=== PATIENT | female | born 1970 | race Caucasian/White ===

== ENCOUNTER 2022-11-26 13:14 | Emergency (ER) | payer BC, SELFPAY ==
[2022-11-26 14:14] VITALS: BP 148/82; PULSE 73; RESP 18; TEMP 35.9; O2SAT 98; BMI 30.1
--- NOTE | 2022-11-26 16:10 | ED.GENADULT ---
HPI - General Adult General Time Seen by Provider: 16:11 Date Seen: 11/26/22 Chief complaint: Headache/Migraine Stated complaint: Post covid congestion Time Seen by Provider: 11/26/22 16:07 Source: patient, family, RN notes reviewed and old records reviewed Mode of arrival: ambulatory Limitations: no limitations History of Present Illness HPI narrative: 52-year-old female who presents with COVID symptoms. She has been feeling poorly since November 17 with nasal congestion, cough, headache. Loss of taste and smell as well. Related Data Allergies Allergy/AdvReac Type Severity Reaction Status Date / Time erythromycin base Allergy Verified 11/26/22 14:14 Penicillins Allergy Verified 11/26/22 14:14 Sulfa (Sulfonamide Allergy Verified 11/26/22 14:14 Antibiotics) Review of Systems Status of ROS: Reports: 10 or more systems reviewed and unremarkable except as noted in History and below Exam Narrative: Exam Narrative: General: Well-developed and well-nourished, no acute distress Head: Atraumatic and normocephalic Eyes: Pupils are equal reactive, extraocular motions intact, conjunctiva clear ENT: External nose and ears are normal, posterior pharynx without erythema or exudate Neck: No midline cervical tenderness, full spontaneous range of motion the neck, trachea midline, no adenopathy Heart: Regular rate and rhythm no murmurs or thrills Lungs: Clear to auscultation bilaterally without wheezes or crackles Abdomen: Soft, nontender, nondistended with active bowel sounds Musculoskeletal: No tenderness, deformity, or edema Neurologic: Awake, alert, and oriented x3, no gross focal neurologic deficits, cranial nerves intact as tested Psych: Mood and affect are appropriate Skin: No rashes Const: Vital Signs, click to edit/add: Vital Signs - 24 hr 11/26/22 14:14 Temperature 96.7 F L Pulse Rate [Pulse Oximeter] 73 Respiratory Rate 18 Blood Pressure [Ri ght Forearm] 148/82 H Pulse Oximetry 98 Oxygen Delivery Me thod Room Air Course Vital Signs Vital signs: Initial Vital Signs Temperature 96.7 F L 11/26/22 14:14 Temperature Source Temporal Artery Scan 11/26/22 14:14 Pulse Rate 73 11/26/22 14:14 Pulse Rhythm Regular 11/26/22 14:14 Respiratory Rate 18 11/26/22 14:14 Blood Pressure 148/82 H 11/26/22 14:14 Blood Pressure Mean 104 11/26/22 14:14 Blood Pressure Position Sitting 11/26/22 14:14 Pulse Oximetry 98 11/26/22 14:14 Oxygen Delivery Method Room Air 11/26/22 14:14 Vital Signs Temperature 96.7 F L 11/26/22 14:14 Pulse Rate 73 11/26/22 14:14 Respiratory Rate 18 11/26/22 14:14 Blood Pressure 148/82 H 11/26/22 14:14 Pulse Oximetry 98 11/26/22 14:14 Oxygen Delivery Method Room Air 11/26/22 14:14 Temperature 96.7 F L 11/26/22 14:14 Pulse Rate 73 11/26/22 14:14 Respiratory Rate 18 11/26/22 14:14 Blood Pressure 148/82 H 11/26/22 14:14 Pulse Oximetry 98 11/26/22 14:14 Oxygen Delivery Method Room Air 11/26/22 14:14 Medical Decision Making Medical Records Medical records reviewed: Yes I reviewed the patient's medical records Lab Data Lab results reviewed: Yes I reviewed the patient's lab results Discharge Plan Discharge Follow Up/Referrals: Ginacarlo Cuello MD [Primary Care Provider] -
--- NOTE | 2022-11-26 16:10 | ED.HA ---
HPI - Headache General Time Seen by Provider: 16:10 Date Seen: 11/26/22 Chief Complaint: Headache/Migraine Stated Complaint: Post covid congestion Time Seen by Provider: 11/26/22 16:07 Source: patient and RN notes reviewed Mode of arrival: ambulatory Limitations: no limitations History of Present Illness HPI Narrative: Jenae a very pleasant 52-year-old female with history recent COVID who comes to the emergency room with concerns regarding continuing headache. Patient was noted to develop COVID symptoms on November 17 after exposure to her who had COVID. She tested positive on November 19. She notes that she had headaches body aches and a sore throat. She states that all of that has resolved and she actually felt fairly well on November 23. In the last 2 days however she has pain behind her eyes and across her lower forehead. She also notes that she has a feeling of fullness in her head and in her ears. She denies fever, visual changes, continued cough or shortness of breath. She does not have any history of clotting disorders but does have a history of migraines. She does not feel like this is a migraine. Patient had called the nurse line today and nurse line suggested she come in to be seen. No neck pain at this time. Related Data Allergies Allergy/AdvReac Type Severity Reaction Status Date / Time erythromycin base Allergy Verified 11/26/22 14:14 Penicillins Allergy Verified 11/26/22 14:14 Sulfa (Sulfonamide Allergy Verified 11/26/22 14:14 Antibiotics) Review of Systems Status of ROS: Reports: 6 or more systems reviewed and unremarkable except as noted in History and below Const: Denies: fever, chills or fatigue Eyes: Denies: change in vision, blurry vision or light sensitivity ENMT: Denies: throat pain, neck pain or difficulty swallowing Cardio: Denies: chest pain or shortness of breath with exertion Resp: Denies: shortness of breath or cough GI: Denies: abdominal pain, nausea, vomiting, diarrhea or difficulty swallowing Musculo: Denies: neck pain Neuro: Reports: headache; Denies: numbness in extremities or weakness in extremities Endo: Denies: fatigue Exam Narrative: Exam Narrative: Patient is very pleasant nontoxic in appearance. Head is atraumatic normocephalic. Neck is supple with full range of motion. EOM is full with pupils equal round reactive. Left TM within normal limits. Right TM is retracted with some fluid but it is not erythematous or bulging. Oral cavity with moist mucous membranes. No significant erythema in the posterior oropharynx. Neck is supple without lymphadenopathy. Face is symmetrical without any obvious swelling edema. No significant discomfort with tapping over the frontal ethmoid or maxillary sinuses. Heart with regular rate and rhythm and lungs are clear to auscultation. Moving all extremities. Const: Vital Signs, click to edit/add: Vital Signs - 24 hr 11/26/22 14:14 11/26/22 16:38 Temperature 96.7 F L Pulse Rate [Pulse Oximeter] 73 63 Respiratory Rate 18 16 Blood Pressure [Ri ght Forearm] 148/82 H 137/87 Pulse Oximetry 98 Oxygen Delivery Me thod Room Air Documenting provider has reviewed patient's vital signs: yes Eye: Direct Ophthalmoscopy: no photophobia Course Vital Signs Vital signs: Initial Vital Signs Temperature 96.7 F L 11/26/22 14:14 Temperature Source Temporal Artery Scan 11/26/22 14:14 Pulse Rate 73 11/26/22 14:14 Pulse Rhythm Regular 11/26/22 14:14 Respiratory Rate 18 11/26/22 14:14 Blood Pressure 148/82 H 11/26/22 14:14 Blood Pressure Mean 104 11/26/22 14:14 Blood Pressure Position Sitting 11/26/22 14:14 Pulse Oximetry 98 11/26/22 14:14 Oxygen Delivery Method Room Air 11/26/22 14:14 Vital Signs Temperature 96.7 F L 11/26/22 14:14 Pulse Rate 73 11/26/22 14:14 Respiratory Rate 18 11/26/22 14:14 Blood Pressure 148/82 H 11/26/22 14:14 Pulse Oximetry 98 11/26/22 14:14 Oxygen Delivery Method Room Air 11/26/22 14:14 Temperature 96.7 F L 11/26/22 14:14 Pulse Rate 63 11/26/22 16:38 Respiratory Rate 16 11/26/22 16:38 Blood Pressure 137/87 11/26/22 16:38 Pulse Oximetry 98 11/26/22 14:14 Oxygen Delivery Method Room Air 11/26/22 14:14 MDM - Headache MDM Narrative Medical decision making narrative: 1. COVID-today is day 8 of COVID and I would not expect patient to be feeling this well. I do not see any red flag symptoms related to her headache. She has no evidence of sinusitis at this time with no fever, chills, nasal drainage. I do see that she is congested however. She may use Afrin or Flonase at home. I would recommend use of ibuprofen in lieu of Tylenol as I think this will help her discomfort a bit more. Warm pack to the face is needed. 2. Disposition-home at this time. Monitor for return of fever, difficulty breathe a, worsening symptoms. Patient voices understanding. Reassurance at this time. Discharge Plan Discharge Clinical Impression: COVID, Frontal sinus pain Headache Qualifiers: Headache type: unspecified Headache chronicity pattern: unspecified pattern Intractability: not intractable Qualified Code(s): R51.9 - Headache, unspecified Patient Disposition: Home, Self-Care Condition: Unchanged Additional Instructions: Alternate ibuprofen 600 mg and acetaminophen also known as Tylenol every 4 hours as needed for discomfort. Warm pack to face. Seek medical attention for return of fever, worsening localized pain and as needed. Follow Up/Referrals: Giancarlo Cuello MD [Primary Care Provider] - Stand Alone Forms: [facility] [employer] Info Instructions
[2022-11-26 16:38] VITALS: BP 137/87; PULSE 63; RESP 16
== END 2022-11-26 16:40 | disposition home or self-care (01) ==
PROVIDERS: Emergency Provider Family Medicine; PCP Family Medicine
DX: U07.1 COVID-19 (principal); R51.9 Headache, unspecified
CPT/HCPCS: 99282; 99283

== ENCOUNTER 2023-01-24 18:06 | Emergency (ER) | payer BC, SELFPAY ==
[2023-01-24 18:18] VITALS: BP 148/84; PULSE 76; RESP 20; TEMP 36.5; O2SAT 96; BMI 29.9
[2023-01-24 20:10] VITALS: BP 144/89; PULSE 64; RESP 16; O2SAT 100
--- NOTE | 2023-01-24 20:43 | ED.GENADULT ---
HPI - General Adult General Chief complaint: Headache/Migraine Stated complaint: Ringing in ears for 3 weeks Time Seen by Provider: 01/24/23 19:32 History of Present Illness HPI narrative: This 52-year-old female comes in reporting tinnitus in the left ear for the past 3 weeks. She was diagnosed with COVID a couple months ago and has had some nasal symptoms and loss of taste and smell. Her taste and smell have returned somewhat. She has been to her ear nose and throat doctor a couple times and this regard and did take a course of a steroid about a month ago. An a subsequent visit to it was determined that she had an ear infection so she is completed a course of doxycycline. She was also instructed to use a nasal wash that goes completely to the back of the nasal passage and back around to clean out her nasal passages. Since then she is developed some headaches. She arrives here with normal vital signs. She states that she has lots of anxiety about symptoms in general and always fears that the worst thing is happening. Related Data Home Medications Medication Instructions Recorded Confirmed budesonide 1 mg/2 mL suspension mg 01/24/23 for nebulization Previous Rx's Medication Instructions Recorded methylprednisolone 4 mg tablets in See Rx Instructions PO .COMPLEX 01/24/23 a dose pack (Medrol (Pepito)) #21 ea Allergies Allergy/AdvReac Type Severity Reaction Status Date / Time erythromycin base Allergy Verified 01/24/23 18:25 Penicillins Allergy Verified 01/24/23 18:25 Sulfa (Sulfonamide Allergy Verified 01/24/23 18:25 Antibiotics) Review of Systems Status of ROS: Reports: 10 or more systems reviewed and unremarkable except as noted in History and below Narrative: Constitutional: No fevers, no weight gain or loss. Eyes: No discharge. No vision changes. HENT: No congestion, no sore throat, no ear pain. Cardiovascular: No chest pain, no palpitations. Respiratory: No shortness of breath, no wheezes, no cough. Gastrointestinal: No abdominal pain, no vomiting, no diarrhea. Genitourinary: No dysuria, no hematuria. Musculoskeletal: Normal range of motion. Skin: No rashes, no pruritis. Neurological: No dizziness, weakness, sensory change, speech change. She has tinnitus on the left side Endo/Heme/Allergies: No bruising or bleeding. No polydipsia. Pysch: no suicidality, no anxiety, no insomnia. All other systems reviewed and are negative. [facility] Social History Non-prescribed substance use: denies use Exam Narrative: Exam Narrative: Constitutional: Well-developed, well-nourished, no acute distress. HEENT: Normocephalic, atraumatic. Tympanic membranes appear normal bilaterally. Oropharynx also appears normal. Neck: Normal range of motion. Nontender. Supple. Heart: Regular. No murmurs. Normal rate. Intact distal pulses. Lungs: Clear to auscultation. No chest discomfort. No wheezes, rhonchi, or rales. Abdomen: Normal bowel sounds. Nontender. No rebound tenderness. Genitalia: Deferred. Back: No midline tenderness. Normal range of motion. Extremities: Normal range of motion. No injury. Skin: Intact. No rash. Warm. No erythema or pallor. Neurologic: No altered sensation. No weakness. Alert and oriented. Psychiatric: No suicidality. No anxiety or depression. No insomnia. Nursing notes and vitals signs are reviewed. Const: Vital Signs, click to edit/add: Vital Signs - 24 hr 01/24/23 18:18 01/24/23 20:10 Temperature 97.7 F Pulse Rate [Pulse Oximeter] 76 64 Respiratory Rate 20 16 Blood Pressure [Ri ght Upper Arm] 148/84 H 144/89 H Pulse Oximetry 96 100 Oxygen Delivery Me thod Room Air Room Air Course Vital Signs Vital signs: Initial Vital Signs Temperature 97.7 F 01/24/23 18:18 Temperature Source Temporal Artery Scan 01/24/23 18:18 Pulse Rate 76 01/24/23 18:18 Pulse Rhythm Regular 01/24/23 18:18 Respiratory Rate 20 01/24/23 18:18 Blood Pressure 148/84 H 01/24/23 18:18 Blood Pressure Mean 105 01/24/23 18:18 Blood Pressure Position Sitting 01/24/23 18:18 Pulse Oximetry 96 01/24/23 18:18 Oxygen Delivery Method Room Air 01/24/23 18:18 Vital Signs Temperature 97.7 F 01/24/23 18:18 Pulse Rate 76 01/24/23 18:18 Respiratory Rate 20 01/24/23 18:18 Blood Pressure 148/84 H 01/24/23 18:18 Pulse Oximetry 96 01/24/23 18:18 Oxygen Delivery Method Room Air 01/24/23 18:18 Temperature 97.7 F 01/24/23 18:18 Pulse Rate 64 01/24/23 20:10 Respiratory Rate 16 01/24/23 20:10 Blood Pressure 144/89 H 01/24/23 20:10 Pulse Oximetry 100 01/24/23 20:10 Oxygen Delivery Method Room Air 01/24/23 20:10 Medical Decision Making MDM Narrative Medical decision making narrative: This patient comes in with variety of symptoms that seemed to have started since coming down with COVID a couple months ago. Her primary symptom is tinnitus but she is also had some headaches and states that her sense of smell and taste is improving. She reports lots of anxiety regarding her symptoms and always feels like something bad is going to happen. Her exam is normal. I did discuss the role of CT imaging regarding sinuses and intracranium but stated that there is no test to determine what is causing tinnitus. She recently completed doxycycline in is not showing any signs of sinusitis. In a process of shared decision-making she declined CT imaging. She feels that perhaps she should discontinue her medications and let her body normalize. I gave reassurance is that her exam and vital signs are not triggering any concerns of worry. She may benefit from another course of a steroid with regard to her tinnitus and any residual nasal symptoms. I did provide prescription for Medrol Dosepak. Discharge Plan Discharge Clinical Impression: Tinnitus Additional Instructions: Take medication as needed and directed. Follow up with MD or return if worsening. Prescriptions: New methylprednisolone [Medrol (Pepito)] 4 mg tablets,dose pack See Rx Instructions .ROUTE .COMPLEX Qty: 21 0RF Rx Instructions: orally per package directions No Action budesonide 1 mg/2 mL suspension for nebulization Patient Comments: PUT ONE RESPULE AND SALT PACKET IN SINUS RINSE TWICE DAILY. DO NOT USE IN ADDITION TO FLONASE OR OTHER NASAL STEROID MEDICATIONS Follow Up/Referrals: Giancarlo Cuello MD [Primary Care Provider] - Stand Alone Forms: [facility] Info [facility]
[2023-01-24 20:59] VITALS: BP 142/84; PULSE 67; RESP 16
[2023-01-24 21:03] VITALS: BP 142/84; PULSE 67; RESP 16; O2SAT 97
== END 2023-01-24 21:05 | disposition home or self-care (01) ==
LOC: ED 21:04
PROVIDERS: Emergency Provider Emergency Medicine Emergency Medical Services; PCP Family Medicine
DX: H93.12 Tinnitus, left ear (principal)
CPT/HCPCS: 99283; 99284

== ENCOUNTER 2023-04-19 13:30 | Outpatient (CLI) | payer OTHER, SELFPAY ==
--- NOTE | 2023-04-19 13:45 | CRLHL7_ITS ---
For Patients: As a result of the Century Cures Act, medical imaging exams and procedure reports are released immediately into your electronic medical record. You may view this report before your referring provider. If you have questions, please contact your health care provider. INDICATION: Asymmetric pulsatile tinnitus. TECHNIQUE: Multiplanar multisequence MR imaging of the brain and internal auditory canals prior to and following intravenous contrast. COMPARISON: None. FINDINGS: The ventricles and sulci are within normal limits for patient age. No mass effect or midline shift. Punctate FLAIR hyperintensity within the left frontal white matter, nonspecific. No intracranial hemorrhage or pathologic extra-axial fluid collection. No diffusion restriction to suggest acute infarction. No pathologic intracranial enhancement. No mass or pathologic enhancement within the internal auditory canals or cerebellopontine angles. No concerning signal abnormalities in the inner ear structures. No vascular loop in the internal auditory canals. The major arterial flow voids of the skullbase are preserved. The globes are symmetric. The paranasal sinuses are well aerated. Minimal left mastoid fluid. IMPRESSION: 1. No acute intracranial abnormality. 2. No mass or pathologic enhancement within the internal auditory canals or cerebellopontine angles. Dictated by Ad Soares MD @ 04/19/2023 3:27:35 PM (Electronically Signed)
== END 2023-04-19 13:31 | disposition home or self-care (01) ==
PROVIDERS: PCP Family Medicine; Visit Provider Family Medicine
DX: H93.19 Tinnitus, unspecified ear (principal)
CPT/HCPCS: 70553; A9575

== ENCOUNTER 2023-05-02 19:25 | Outpatient (CLI) | payer OTHER, SELFPAY ==
--- NOTE | 2023-05-02 19:45 | CRLHL7_ITS ---
For Patients: As a result of the Century Cures Act, medical imaging exams and procedure reports are released immediately into your electronic medical record. You may view this report before your referring provider. If you have questions, please contact your health care provider. CLINICAL HISTORY: Tinnitus. TECHNIQUE: 3D TOF MRA of the head was performed. 3D MIP reformats were performed at an independent workstation. COMPARISON: None available. FINDINGS: The petrous, cavernous, and supraclinoid segments of the internal carotid arteries are patent. The anterior and middle cerebral arteries are patent. The anterior communicating artery is visualized and within normal limits. The intracranial vertebral arteries, basilar trunk, and posterior cerebral arteries are patent. No intracranial proximal large vessel occlusion or flow-limiting luminal stenosis. No evidence of cerebral aneurysm or findings to suggest an arterial-venous shunting lesion. IMPRESSION: Normal MRA of the head. Dictated by Esvin Quiroga MD @ 05/02/2023 11:05:37 PM (Electronically Signed)
--- NOTE | 2023-05-02 20:30 | CRLHL7_ITS ---
For Patients: As a result of the Century Cures Act, medical imaging exams and procedure reports are released immediately into your electronic medical record. You may view this report before your referring provider. If you have questions, please contact your health care provider. CLINICAL HISTORY: Tinnitus. TECHNIQUE: 2D and 3D TOF MRA of the neck was performed. 3D MIP reformats were performed at an independent workstation. COMPARISON: None available. FINDINGS: The origins of the great vessels are patent. The origins of the vertebral arteries are patent. The common carotid arteries are patent. The proximal internal carotid arteries are patent without luminal stenoses by NASCET criteria. The more distal cervical segments of the internal carotid arteries are patent. The cervical segments of the vertebral arteries are patent. IMPRESSION: Patent cervical arterial vasculature without hemodynamically significant luminal stenosis. Dictated by Esvin Quiroga MD @ 05/02/2023 11:04:06 PM (Electronically Signed)
== END 2023-05-02 19:26 | disposition home or self-care (01) ==
LOC: MRI 19:26
PROVIDERS: PCP Family Medicine
DX: H93.13 Tinnitus, bilateral (principal)
CPT/HCPCS: 70544; 70547

== ENCOUNTER 2023-08-17 20:34 | Emergency (ER) | payer OTHER, SELFPAY ==
[2023-08-17 20:45] VITALS: BP 132/85; PULSE 91; RESP 16; TEMP 37.9; O2SAT 95; BMI 28.2
--- NOTE | 2023-08-17 20:53 | CT_ITS ---
Patient: EVERETTE RODRIGUEZ Facility:?[facility] Patient ID:?[id number] Site Patient ID:?[id number] Site :?[id number] Study:?CT-Abdomen/Pelvis W/ 78CC ISOVUE 370-08/17/2023 10:05:55 PM Ordering Physician:TEZ Final Report: INDICATION: Abdominal pain TECHNIQUE: CT Abdomen and pelvis with i.v. contrast. Coronal and sagittal reformats were obtained. CONTRAST: 78 mL Isovue 370 COMPARISON: None FINDINGS: Lower chest: Unremarkable. Liver: There is an 8 mm cyst present in the left dome of the liver. Spleen: Unremarkable. Pancreas: Unremarkable. Gallbladder: Unremarkable. Kidney: Excretion of contrast into the renal collecting systems noted, which limits evaluation for the presence of stones. Cortical scarring is seen in the upper pole of the left kidney. Adrenal: Unremarkable. Bowel: Focal wall thickening with surrounding inflammatory changes and inflamed diverticulum are seen in the mid descending colon. A midline ventral hernia is present in the pelvis containing segments of small bowel without obstruction. The appendix is normal in appearance and size. Vascular: Unremarkable. Lymph: Unremarkable. Peritoneum: Unremarkable. No pneumoperitoneum is seen. No significant ascites is noted. Pelvis: Multiple nodules with heterogeneous enhancement are present within the uterus measuring up to 2.5 cm represent multiple fibroids. Soft tissue: Unremarkable. Bone: Unremarkable for age. IMPRESSIONS: 1. Focal wall thickening with surrounding inflammatory changes and inflamed diverticulum are seen in the mid descending colon. These findings are consistent with acute diverticulitis. No adjacent peridiverticular abscess is seen. 2. A midline ventral hernia is present in the pelvis containing segments of small bowel without obstruction. Dictated by Todd Mcdonnell MD @ 08/17/2023 10:39:55 PM Please note that all CT scans at this facility use dose modulation, iterative reconstruction, and/or weight-based dosing when appropriate to reduce radiation dose to as low as reasonably achievable. Dictated by: Todd Mcdonnell MD @ 08/17/2023 22:40:37 Signed by:Navneet Mcdonnell MD @08/17/2023 10:40:37 PM (Electronic Signature)
--- NOTE | 2023-08-17 20:55 | ED.ABDPAIN ---
HPI - Abdominal Pain General Chief Complaint: Abdominal Pain Stated Complaint: abdominal pain Time Seen by Provider: 08/17/23 20:35 History of Present Illness HPI narrative: Patient is a 52-year-old woman comes in today with 2 days of left-sided abdominal pain. She has had no fevers no chills no night sweats. She has had no blood in her stool no nausea or vomiting. She has has a mild headache. She states the pain is persistent in his leading to mild anorexia. She has had no success with [id number] remedies an comes in with 6/10 sharp pain. Related Data Home Medications Medication Instructions Recorded Confirmed No Known Home Medications 08/17/23 08/17/23 Allergies Allergy/AdvReac Type Severity Reaction Status Date / Time erythromycin base Allergy Verified 08/17/23 21:57 Sulfa (Sulfonamide Allergy Verified 08/17/23 21:57 Antibiotics) Review of Systems Status of ROS Reports: 10 or more systems reviewed and unremarkable except as noted in History and below PFSH PFS Social History Smoking Status: Never smoker How often do you have a drink containing alcohol: never How often do you have six or more drinks on one occasion: Never AUDIT-C Alcohol total score: 0 Non-prescribed substance use: denies use Exam Narrative: Exam Narrative: EXAM GENERAL: Patient appears comfortable and well. EYES: No scleral icterus. LYMPH: No supraclavicular or cervical lymphadenopathy. SKIN: Visible skin seen during exam normal or with benign process only. EXT: No dependent lower extremity pedal edema. HEART: Regular rate and rhythm with no murmurs, rubs, or gallops. LUNGS: Clear to auscultation bilaterally with no crackles or wheezes. ABD: Mildly distended with mild tenderness to palpation left side of her abdomen. Mild rebound noted. Hypoactive but present bowel sounds present. PSYCH: Good eye contact, speech is not pressured. Const: Vital Signs, click to edit/add: Vital Signs - 24 hr 08/17/23 20:45 08/17/23 22:54 Temperature 100.2 F H Pulse Rate [Pulse Oximeter] 91 81 Respiratory Rate 16 16 Blood Pressure [Ri ght Upper Arm] 132/85 128/79 Pulse Oximetry 95 94 Oxygen Delivery Me thod Room Air Room Air Course Course ED Course: CBC CMP amylase CT abdomen pelvis UA pending. Normal saline 1 L given 30 mg of Toradol 4 mg of Zofran given. Vital Signs Vital signs: Initial Vital Signs Temperature 100.2 F H 08/17/23 20:45 Temperature Source Temporal Artery Scan 08/17/23 20:45 Pulse Rate 91 08/17/23 20:45 Respiratory Rate 16 08/17/23 20:45 Blood Pressure 132/85 08/17/23 20:45 Blood Pressure Mean 100 08/17/23 20:45 Blood Pressure Position Sitting 08/17/23 20:45 Pulse Oximetry 95 08/17/23 20:45 Oxygen Delivery Method Room Air 08/17/23 20:45 Vital Signs Temperature 100.2 F H 08/17/23 20:45 Pulse Rate 91 08/17/23 20:45 Respiratory Rate 16 08/17/23 20:45 Blood Pressure 132/85 08/17/23 20:45 Pulse Oximetry 95 08/17/23 20:45 Oxygen Delivery Method Room Air 08/17/23 20:45 Temperature 100.2 F H 08/17/23 20:45 Pulse Rate 81 08/17/23 22:54 Respiratory Rate 16 08/17/23 22:54 Blood Pressure 128/79 08/17/23 22:54 Pulse Oximetry 94 08/17/23 22:54 Oxygen Delivery Method Room Air 08/17/23 22:54 Medications Administered Medications: Discontinued Medications Generic Name Dose Route Start Last Admin Trade Name Freq PRN Reason Stop Dose Admin Sodium Chloride 1,000 mls @ 1,000 mls/hr 08/17/23 20:54 08/17/23 22:55 0.9 % Sodium Chloride 1000 Ml IV 08/17/23 21:53 Infused .Q1H JERAMIE Infusion Ketorolac Tromethamine 30 mg 08/17/23 20:54 08/17/23 21:55 Ketorolac 30 Mg/Ml Inj IVP 08/17/23 20:55 30 mg ONCE ONE Administration Ondansetron HCl 4 mg 08/17/23 20:54 08/17/23 21:55 Ondansetron 2 Mg/Ml Inj IVP 08/17/23 20:55 4 mg ONCE ONE Administration MDM - Abdominal Pain MDM Narrative Medical decision making narrative: Patient is a 52-year-old woman who comes in today with left-sided abdominal pain. Her CT is consistent with diverticulitis. She has leukocytosis well as evidence of UTI. I did give her L of saline and she feels much better. She has history of previous partial colectomy secondary to recurrent diverticulitis. This time will treated with Augmentin 875 p.o. b.i.d. times 10 days as well as close outpatient follow-up. Differential diagnosis includes but not limited to urosepsis cystitis colitis diverticulitis inflammatory bowel disease cholecystitis. Lab Data Labs: Lab Results 08/17/23 08/17/23 Range/Units 21:19 Unknown WBC 11.63 H (4.50-11.00) K/uL RBC 4.75 (4.00-5.20) m/uL Hgb 14.3 (12.0-16.0) gm/dL Hct 43.2 (33.0-51.0) % MCV 91 (80-100) fL MCH 30 (26-34) pg MCHC 33 (32-36) gm/dL RDW Coeff of [place] 12.8 (11.5-15.5) % Plt Count 84 L (140-440) K/uL Neut % (Auto) 70.5 (42.0-72.0) % Lymph % (Auto) 22.0 (20-44) % [place] % (Auto) 6.4 (0.0-11.0) % Eos % (Auto) 0.7 (0.0-7.0) % Baso % (Auto) 0.3 (0.0-3.0) % Neut # (Auto) 8.20 H (1.7-7.0) K/uL Lymph # (Auto) 2.60 (0.90-2.90) K/uL [place] # (Auto) 0.70 (0.00-0.90) K/UL Eos # (Auto) 0.10 (0.00-0.50) K/uL Baso # (Auto) 0.00 (0.00-0.30) K/uL Abs Immat Gran (auto) 0.00 (0.00-0.30) K/uL Imm/Tot Granulo (auto) 0.1 % Diff Slide Review Acceptable Review (Acceptable) Sodium 139 (135-149) mmol/L Potassium 3.7 (3.6-5.1) mmol/L Chloride 105 (96-114) mmol/L Carbon Dioxide 25 (20-32) mmol/L Anion Gap 9 (7-15) mEq/L BUN 11 (7-30) mg/dL Creatinine 0.6 (0.5-1.5) mg/dL Estimated Creat Clear 91.76 Estimated GFR 109 ml/min Glucose 112 (60-115) mg/dL Calcium 9.7 (8.4-10.6) mg/dL Total Bilirubin 1.2 (0.1-1.5) mg/dL AST 69 H (12-35) U/L ALT 98 H (4-35) U/L Alkaline Phosphatase 118 (40-150) U/L Total Protein 8.4 H (6.0-8.3) g/dL Albumin 4.9 (3.3-5.0) g/dL Amylase 69 (18-89) U/L Urine Color Yellow (Yellow) Urine Appearance Clear (Clear) Urine pH 6.5 (5.0-8.5) Ur Specific [place] 1.015 (1.000-1.030) Urine Protein Trace A (Negative) Urine Glucose (UA) Negative (Negative) Urine Ketones Negative (Negative) Urine Blood Trace-intact A (Negative) Urine Nitrite Negative (Negative) Urine Bilirubin Negative (Negative) Urine Urobilinogen 0.2 (0.2-1.0) Ur Leukocyte Esterase 1+ A (Negative) Urine RBC 0-2 (0-2) Urine WBC 10-25 A (0-5) Urine WBC Clumps None (None) Ur Squamous Epith Cells Few (None-Few) Urine Bacteria Few A (None) Discharge Plan Discharge Clinical Impression: Diverticulitis Patient Disposition: Home, Self-Care Condition: Stable Instructions: Diverticulitis (ED) Additional Instructions: Rest Fluids Augmentin as directed Follow-up with your doctor as discussed. Activity Level: No Restrictions Discharge Diet: Regular Prescriptions: No Action No Known Home Medications Follow Up/Referrals: Giancarlo Cuello MD [Primary Care Provider] - Stand Alone Forms: Viewabill Info Instructions
[2023-08-17 21:28] LABS: Basophils Percent Auto 0.3 % (0.0-3.0); Eosinophils Percent Auto 0.7 % (0.0-7.0); Hematocrit 43.2 % (33.0-51.0); Hemoglobin* 14.3 gm/dL (12.0-16.0); Immature Granulocytes Pct Auto 0.1 %; Mean Corpuscular HGB Conc 33 gm/dL (32-36); Mean Corpuscular Hemoglobin 30 pg (26-34); Mean Corpuscular Volume 91 fL (80-100); Monocytes Percent Auto 6.4 % (0.0-11.0); Neutrophils Percent Auto 70.5 % (42.0-72.0); Platelet Count* 84 K/uL (140-440); RDW Coefficient of Variation % 12.8 % (11.5-15.5); Red Blood Count 4.75 m/uL (4.00-5.20); White Blood Count* 11.63 K/uL (4.50-11.00)
[2023-08-17 21:29] LABS: Slide Review Reflex Yes
[2023-08-17 21:30] LABS: Slide Review Acceptable Review (Acceptable)
[2023-08-17 21:39] LABS: Albumin* 4.9 g/dL (3.3-5.0); Chloride* 105 mmol/L (96-114); Potassium* 3.7 mmol/L (3.6-5.1); Sodium* 139 mmol/L (135-149)
[2023-08-17 21:40] LABS: Appearance Urine Clear (Clear); Bilirubin Urine Negative (Negative); Blood Urine Trace-intact (Negative); Color Urine Yellow (Yellow); Glucose Urine Negative (Negative); Ketones Urine Negative (Negative); Leukocyte Esterase Urine 1+ (Negative); Nitrite Urine Negative (Negative); Protein Urine Trace (Negative); Specific Gravity Urine 1.015 (1.000-1.030); Urobilinogen Urine 0.2 (0.2-1.0); pH Urine 6.5 (5.0-8.5)
[2023-08-17 21:41] LABS: Amylase* 69 U/L (18-89)
[2023-08-17 21:42] LABS: Anion Gap 9 mEq/L (7-15); Carbon Dioxide* 25 mmol/L (20-32); Creatinine* 0.6 mg/dL (0.5-1.5); Est. Creatinine Clearance* 91.76; Estimated Glomerular Filt Rate 109 ml/min
[2023-08-17 21:43] LABS: Alanine Aminotransferase* 98 U/L (4-35); Alkaline Phosphatase* 118 U/L (40-150); Aspartate Amino Transferase* 69 U/L (12-35); Bilirubin Total* 1.2 mg/dL (0.1-1.5); Blood Urea Nitrogen* 11 mg/dL (7-30); Calcium* 9.7 mg/dL (8.4-10.6); Glucose* 112 mg/dL (60-115); Total Protein* 8.4 g/dL (6.0-8.3)
[2023-08-17 21:50] LABS: Bacteria Urine Few; RBC Urine 0-2 (0-2); Squamous Epithelial Cell Urine Few (None-Few)
[2023-08-17] MEDS: 0.9 % SODIUM CHLORIDE 1000 ml 1,000 ML IV (21:55)
[2023-08-17] MEDS: KETOROLAC 30 MG/ML inj IVP (21:55)
[2023-08-17] MEDS: ONDANSETRON 2 MG/ML inj 4 MG IVP (21:55)
[2023-08-17 22:54] VITALS: BP 128/79; PULSE 81; RESP 16; O2SAT 94
== END 2023-08-17 23:05 | disposition home or self-care (01) ==
PROVIDERS: Emergency Provider Internal Medicine; PCP Family Medicine
DX: K57.92 Diverticulitis of intestine, part unspecified, without perforation or abscess without bleeding (principal)
CPT/HCPCS: 36415; 74177; 80053; 81001; 81003; 82150; 85025; 87086; 96361; 96374; 96375; 99283; 99284; J1885; J2405; J7030; Q9967